=== PATIENT | female | born 1965 ===

== ENCOUNTER → 2019-11-25 16:21 | Outpatient (BNVA) | payer OTHER, SELFPAY | PROVIDERS: Family Provider Nurse Practitioner; PCP Nurse Practitioner; Visit Provider Internal Medicine | DX: Z86.19 Personal history of other infectious and parasitic diseases (principal); B37.3 Candidiasis of vulva and vagina | CPT/HCPCS: 87522 ==

== ENCOUNTER → 2020-06-13 07:20 | Outpatient (BNVA) | payer BC, OTHER, SELFPAY | PROVIDERS: Family Provider Nurse Practitioner; PCP Nurse Practitioner; Visit Provider Nurse Practitioner Family | DX: Z11.59 Encounter for screening for other viral diseases (principal) | CPT/HCPCS: 87635 ==

== ENCOUNTER 2022-01-01 15:14 | Outpatient (CLI) | payer OTHER, SELFPAY ==
--- NOTE | 2022-01-01 15:30 | MM_ITS ---
WS: [id number] VIEWS: MLO and CC views both breasts. 3D digital tomosynthesis is also included in this exam. Comparison made with prior exam of 08/14/2013, 09/10/2014, 09/12/2015, 09/17/2016, 09/19/2017, 03/12/2019.. Findings: There was no sign of mass, architectural distortion or suspicious calcification in either breast. Th e breasts are heterogeneously dense MM/[place] [id number] Impression: BI-RADS: 2-Benign FOLLOW-UP: 1 Year Follow-up This mammogram was also analyzed by the Computer Aided Detection System R2 Imag e Matrix Inspector.
== END 2022-01-01 15:15 | disposition home or self-care (01) ==
LOC: RAD 15:26
PROVIDERS: PCP Nurse Practitioner; Visit Provider Nurse Practitioner
DX: Z12.31 Encounter for screening mammogram for malignant neoplasm of breast (principal)
CPT/HCPCS: 77063; 77067

== ENCOUNTER 2022-12-19 01:14 | Inpatient (IN) | payer OTHER, SELFPAY ==
[2022-12-19] VITALS (17 sets, daily range): BP systolic 91–112; BP diastolic 58–72; PULSE 83–115; RESP 16–22; TEMP 36.8–38.7; O2SAT 89–99; BMI 19.8
--- NOTE | 2022-12-19 01:18 | ECG_ITS ---
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 Measurements Intervals [place] Rate: 115 P: 62 [place]: 124 QRS: 9 QRSD: 110 T: 12 QT: 326 QTc: 452 Interpretive Statements SINUS TACHYCARDIA POSSIBLE LEFT ATRIAL ENLARGEMENT [-0.1mV P-WAVE IN V1/V2] INCOMPLETE RIGHT BUNDLE BRANCH BLOCK ;S DURATION, TERMINAL R IN V1/V2, 40+ ms S IN I/aVL/V4/V5/V6] ST DEVIATION AND MODERATE T-WAVE ABNORMALITY, CONSIDER ANTERIOR ISCHEMIA [-0.1+ mV T-WAVE IN V3/V4] TYPE I BRUGADA PATTERN (NON-DIAGNOSTIC) [COVED/SADDLEBACK ST ELEVATION > 0.1mV IN 2 OF V1-3] No previous ECG available for comparison Electronically Signed On 12-19-2022 20:57:56 CDT by Nba Kerr M.D. [id number]
--- NOTE | 2022-12-19 01:18 | XRR_ITS ---
PROCEDURE INFORMATION: Exam: XR Chest Exam date and time: 12/19/2022 1:25 AM Age: 57 years old Clinical indication: Pain; Chest pressure; Additional info: Cp TECHNIQUE: Imaging protocol: Radiologic exam of the chest. Views: 1 view. COMPARISON: No relevant prior studies available. FINDINGS: Lungs: Left lower lung field hazy consolidative changes. Subtle right lower lung field hazy reticular opacities. Pleural spaces: No pneumothorax. Heart/Mediastinum: No cardiomegaly. Bones/joints: No acute fracture. XR/XR chest 1V portable [id number] IMPRESSION: Left lower lung field hazy consolidative changes compatible with evolving infectious and/or inflammatory process. Recommend follow-up to resolution to exclude other etiologies and occult underlying pathology.
--- NOTE | 2022-12-19 01:23 | ED_ITS ---
HPI - Chest Pain General: Chief Complaint: Chest Pain Stated Complaint: CP Time Seen by Provider: 12/19/22 01:15 Source: patient and EMS Mode of arrival: EMS Limitations: no limitations History of Present Illness: 57-year-old female states that she been having sharp left-sided chest pain throughout the day she has had a slight cough she is febrile here with a temp of 101.6 she states the pain is much worse with movement and palpation. Had some mild dyspnea as well. She denies any worsening improving factors denies any vomiting or diarrhea. Associated symptoms: Reports dyspnea and fever(s); Deny abdominal pain, nausea or vomiting Review of Systems Const: Reports: fever(s) and chills; Denies: body aches or change in appetite Eyes: Denies: blurry vision or eye discomfort ENMT: Denies: throat pain or dental pain Card: Reports: chest pain Resp: Reports: dyspnea GI: Denies: abdominal pain, nausea, vomiting or diarrhea : Denies: dysuria Musc: Denies: neck pain or back pain Skin/Breast: Denies: rash Neuro: Denies: headache(s) PFSH ED PFSH: Medical History Hepatitis C, chronic Surgical History History of section Family History Mother Goiter Hypertension Parkinson disease Sister Hepatitis C, chronic Grandmother Melanoma Social History Smoking and tobacco status: never smoked Alcohol intake: never Substance/Drug Use: never Household members: spouse Marital status: Current occupational status: employed Current gender identity: Female Physical Exam Const: COMMON NORMALS: patient oriented x3 HENMT: COMMON NORMALS: normocephalic and atraumatic HEAD & SCALP: normocephalic and atraumatic Eye: COMMON NORMALS: conjunctivae normal CONJUNCTIVA: Yes conjunctivae normal Neck/C-Spine: COMMON NORMALS: full ROM and supple Chest: COMMONS NORMALS: normal inspection of the chest OTHER: point tender over left chest reproduces pain Resp: COMMON NORMALS: No retractions and No use of accessory muscles OTHER: rales on left lower lung Cardio: COMMON NORMALS: regular rate, regular rhythm and No murmurs present (Cardio) RATE: regular rate RHYTHM: regular rhythm GI: COMMON NORMALS: Normal to inspection, nondistended, normoactive bowel sounds present, Soft to palpation, non-tender and no masses PALPATION: Yes Soft to palpation Extremity: COMMON NORMALS: normal to inspection and full ROM Neuro: COMMON NORMALS: patient oriented x3, moves all extremities and no focal motor deficits Psych: COMMON NORMALS: mental status grossly normal, Normal thought process present and cooperative THOUGHT PROCESS: Normal thought process present Skin: COMMON NORMALS: no rashes or lesions noted and no wounds GENERAL SKIN EXAM: no rashes or lesions noted Course Vital Signs: Vital signs: Vital Signs Temperature 101.6 F H 12/19/22 01:17 Pulse Rate 88 12/19/22 03:13 Respiratory Rate 18 12/19/22 02:24 Blood Pressure 107/66 12/19/22 03:13 Pulse Oximetry 95 12/19/22 03:13 Oxygen Delivery Me thod Nasal Cannula 12/19/22 03:13 Oxygen Flow Rate 2 12/19/22 03:13 MDM - Chest Pain Medical Decision Making Patient presents here with left-sided chest pain along with fever and some s hortness of breath she does have a left-sided pneumonia noted on her x-ray. She is requiring 2 L oxygen here as well I did speak to the hospitalist will admit for IV antibiotics at this time. Medical Records I reviewed the patient's medical records. Lab Data 12/19/22 02:05 12/19/22 02:05 Laboratory Results WBC 9.7 10^3/uL (4.0-10.0) 12/19/22 02:05 RBC 4.41 10^6/uL (4.1-5.3) 12/19/22 02:05 Hgb 13.4 g/dL (11.5-15.3) 12/19/22 02:05 Hct 41.6 % (37.0-47.0) 12/19/22 02:05 MCV 94.3 fl (81-99) 12/19/22 02:05 MCH 30.4 pg (28.0-34.0) 12/19/22 02:05 MCHC 32.2 g/dL (30.0-36.0) 12/19/22 02:05 RDW 11.9 % (12.1-15.1) L 12/19/22 02:05 Plt Count 209 10^3/cmm (130-400) 12/19/22 02:05 MPV 9.6 fL (7.4-10.4) 12/19/22 02:05 Neut % (Auto) 90.9 % 12/19/22 02:05 Lymph % (Auto) 4.5 % 12/19/22 02:05 Mcmullen % (Auto) 4.0 % 12/19/22 02:05 Eos % (Auto) 0.1 % 12/19/22 02:05 Baso % (Auto) 0.1 % 12/19/22 02:05 Neut # (Auto) 8.77 10^3/uL (1.8-7.7) H 12/19/22 02:05 Lymph # (Auto) 0.4 10^3/uL (0.8-4.8) L 12/19/22 02:05 Mcmullen # (Auto) 0.4 10^3/uL (0.2-0.9) 12/19/22 02:05 Eos # (Auto) 0.0 10^3/uL (0.0-0.8) 12/19/22 02:05 Baso # (Auto) 0.0 10^3/uL (0.0-0.1) 12/19/22 02:05 Nucleated RBC % (auto) 0 % 12/19/22 02:05 Nucleated RBCs # 0.0 /100WBC 12/19/22 02:05 Sodium 139 mmol/L (136-145) 12/19/22 02:05 Potassium 3.2 mmol/L (3.5-5.1) L 12/19/22 02:05 Chloride 104 mmol/L (98-107) 12/19/22 02:05 Carbon Dioxide 25 mmol/L (22-29) 12/19/22 02:05 Anion Gap 13.2 (5-19) 12/19/22 02:05 BUN 24 mg/dL (6-20) H 12/19/22 02:05 Creatinine 0.9 mg/dL (0.5-0.9) 12/19/22 02:05 GFR Calculation 64.3 mL/min (90-130) L 12/19/22 02:05 Glucose 131 mg/dL (65-115) H 12/19/22 02:05 Calculated Osmolality 294 mOsm/kg (285-295) 12/19/22 02:05 Lactic Acid 1.5 mmol/L (0.5-2.2) 12/19/22 02:05 Calcium 8.2 mg/dL (8.5-10.5) L 12/19/22 02:05 Total Bilirubin 0.4 mg/dL (0.15-1.2) 12/19/22 02:05 AST 24 U/L (0-32) 12/19/22 02:05 ALT 17 U/L (0-33) 12/19/22 02:05 Alkaline Phosphatase 76 U/L (35-105) 12/19/22 02:05 Troponin T Baseline 10 ng/L (0-10) 12/19/22 02:05 NT-Pro-B Natriuret Pep 116 pg/mL (0-125) 12/19/22 02:05 Total Protein 6.7 g/dL (6.6-8.7) 12/19/22 02:05 Albumin 4.0 g/dL (3.5-5.2) 12/19/22 02:05 Globulin 2.7 g/dL (1.3-4.6) 12/19/22 02:05 SARS-CoV-2 Ag (Rapid) negative (Negative) 12/19/22 01:50 Discharge Plan Discharge Patient Disposition: Admitted As Inpatient Clinical Impression: Pneumonia Condition: Stable Coding Level of Care Code ED Habilitation Training Specialist for Hannah Ann
[2022-12-19] MEDS: morphine 4 mg/mL SDV 1 mL IVP (01:30)
[2022-12-19] MEDS: ondansetron 2 mg/ML SDV 2 mL 4 MG IVP (01:30)
[2022-12-19] MEDS: sodium chloride 0.9% 1,000 ML 999 ML IV ×2 (01:31→01:40)
[2022-12-19] MEDS: acetaminophen 500 mg Tablet 1000 MG PO (01:38)
[2022-12-19] MEDS: cefTRIAXone 1,000 MG in sodium chloride 0.9% (plus) 50 ML 100 MG IV (02:04)
[2022-12-19 02:16] LABS: SARS Covid-2 Antigen negative (Negative)
[2022-12-19 02:17] LABS: Basophils % 0.1 %; Eosinophils % 0.1 %; Hematocrit 41.6 % (37.0-47.0); Hemoglobin 13.4 g/dL (11.5-15.3); Lymphocytes # 0.4 10^3/uL (0.8-4.8); Lymphocytes % 4.5 %; Mean Corpuscular HGB Conc 32.2 g/dL (30.0-36.0); Mean Corpuscular Hemoglobin 30.4 pg (28.0-34.0); Mean Corpuscular Volume 94.3 fl (81-99); Mean Platelet Volume 9.6 fL (7.4-10.4); Monocytes # 0.4 10^3/uL (0.2-0.9); Neutrophils # 8.77 10^3/uL (1.8-7.7); Neutrophils % 90.9 %; Nucleated Red Blood Cells % 0 %; Platelet Count 209 10^3/cmm (130-400); Red Blood Count 4.41 10^6/uL (4.1-5.3); Red Cell Distribution Width 11.9 % (12.1-15.1); White Blood Count 9.7 10^3/uL (4.0-10.0)
[2022-12-19] MEDS: HYDROmorphone 1 mg/mL INJ 1 mL 0.5 MG IVP (02:17)
[2022-12-19] MEDS: azithromycin 500 MG in sodium chloride 0.9% 250 ML 250 MG IV (02:21)
[2022-12-19 02:43] LABS: Lactic Sepsis W/Reflex 1.5 mmol/L (0.5-2.2)
[2022-12-19 02:55] LABS: Alanine Aminotransferase 17 U/L (0-33); Alkaline Phosphatase 76 U/L (35-105); Anion Gap 13.2 (5-19); Aspartate Amino Transferase 24 U/L (0-32); Blood Urea Nitrogen 24 mg/dL (6-20); Calcium 8.2 mg/dL (8.5-10.5); Carbon Dioxide 25 mmol/L (22-29); Chloride 104 mmol/L (98-107); Globulin 2.7 g/dL (1.3-4.6); Glomerular Filtration Rate 64.3 mL/min (90-130); Glucose 131 mg/dL (65-115); NT Pro B Type Natriuretic Pept 116 pg/mL (0-125); Osmolality Calculated 294 mOsm/kg (285-295); Potassium 3.2 mmol/L (3.5-5.1); Sodium 139 mmol/L (136-145); Total Bilirubin 0.4 mg/dL (0.15-1.2); Total Protein 6.7 g/dL (6.6-8.7)
[2022-12-19 03:08] LABS: Troponin(5th) Baseline 10 ng/L (0-10)
[2022-12-19 04:12] LABS: Glucose Urine UA Norm (Normal); Protein Urine Trace (Negative); Urine Appearance Clear (CLEAR); Urine Color Yellow (Yellow); pH Urine 7 (5-7)
[2022-12-19 04:13] LABS: Add Urine Culture? No; Add Urine Microscopic? YES; Bacteria Urine TRACE /hpf; Bilirubin Urine Neg (Negative); Blood Urine 2+ (Negative); Ketones Urine Negative (Negative); Leukocyte Esterase Urine Trace (Negative); Nitrate Urine Negative (Negative); Urobilinogen Urine Neg (Negative); WBC Urine 0-4 /hpf (0-5)
--- NOTE | 2022-12-19 04:15 | PM.HP ---
Providers/Chief Complaint Admitting Physician: Iris Kennedy MD Primary Care Provider: Mary Montanez APN Chief Complaint: CP History of Present Illness Eri Kaye is a 57 year old female past medical history of chronic hepatitis C presented to the hospital for sharp left-sided chest pain has been going on all day along with slight cough. She is not really expectorating any sputum at this time. She has had a fever at home and has been febrile in the ER as well at 101.6. Her chest pain worsens with every deep breath and movement. She also feels slightly short of breath. Denies nausea, vomiting, diarrhea, abdominal pain at this time. She has also noticed her heart has been skipping a beat lately. She considers herself very healthy otherwise. Denies hx of blood clots. Works at [employer]. She states her job entails standing all day. She says she is quite worried about her heart that she might be getting a heart attack since it has been skipping beats and she has been having chest pain however the chest pain is reproducible to palpation and is related to movement and worsens when she lays flat. However she also says that maybe she does not notice the pain when she is working because she is so busy and only notices it when she lays down. ED course: 107/66, saturating 95% on 2 L nasal cannula. Has not on any oxygen at home. Respiratory rate 18, pulse 88, temp 101.6. Labs showing WBC 9.7, hemoglobin 13.4, platelets 2 9, sodium 139, potassium 3.2, creatinine 0.9, glucose 131, lactic acid 1.5, COVID-negative. BNP 116. Chest x-ray shows left lower lung field hazy consolidative changes compatible with evolving infectious or inflammatory process. EKG shows possible Brugada syndrome. Right bundle branch block present. Patient slightly sinus tachycardic. Medications/Allergies Home Medications Medication Instructions Recorded Confirmed Last Taken Type cetirizine 10 mg tablet (Zyrtec) 10 mg PO DAILY 11/24/19 06/25/22 Unknown History Allergies Allergy/AdvReac Type Severity Reaction Status Date / Time No Known Allergies Allergy Verified 06/25/22 15:01 PFSH Acute PFSH: Medical History Hepatitis C, chronic Surgical History History of section Family History Mother Goiter Hypertension Parkinson disease Sister Hepatitis C, chronic Grandmother Melanoma Social History Smoking and tobacco status: never smoked Alcohol intake: never Substance/Drug Use: never Household members: spouse Marital status: Current occupational status: employed Current gender identity: Female Vitals/I&O/Wt Last Vital Signs Temp 98.8 F 12/19/22 03:53 Pulse 93 12/19/22 03:34 Resp 18 12/19/22 02:24 BP 101/71 12/19/22 03:34 Pulse Ox 97 12/19/22 03:34 O2 Del Method Nasal Cannula 12/19/22 03:34 O2 Flow Rate 2 12/19/22 03:34 12/18/22 12/18/22 12/19/22 14:59 22:59 06:59 Intake Total 1050 / 1050 Balance 1050 / 1050 Weight last 48 hrs Weight 47.627 kg Physical Exam Narrative: General: Alert oriented x3, patient seen laying in bed on 2 L nasal cannula at this time saturating 95%. Appears anxious. HEENT: Normocephalic, atraumatic, EOMI, breathing comfortably on nasal cannula. Cardio: Slight sinus tachycardia, normal S1-S2, Respiratory: Mainly clear to auscultation bilaterally with mild rales at left lower base GI: Abdomen soft, nontender, bowel sounds + Behavior: Appropriate and cooperative Extremities: No edema present. Data 12/19/22 02:05 12/19/22 02:05 Micro: Microbiology 12/19/22 02:07 Blood Culture - Preliminary Blood SPECIMEN COLLECTED 12/19/22 02:05 Blood Culture - Preliminary Blood SPECIMEN COLLECTED A&P Assessment and plan (1) Pneumonia: (2) Hepatitis C virus infection cured after antiviral drug therapy: Plan #Left lower lobe pneumonia #History of hepatitis C. #Possible Brugada syndrome on EKG #New oxygen dependency ? Patient is experiencing pleuritic chest pain most likely secondary to pneumonia. However pericarditis is not excluded at this time. We will check procalcitonin. ? Baseline troponin 10, BNP 116. 2-hour 6-hour troponin is pending at this time. UA shows trace leukocyte esterase, 2+ blood, 5-10 RBCs. ? Placed on ceftriaxone azithromycin ? Check bacterial antigens Legionella, Streptococcus ? DuoNeb every 4 hours as needed ? Check CBC BMP in a.m., magnesium in a.m. ? Consult cardiology regarding EKG findings in a.m. ? Tylenol 650 as needed for pain ? Check hep C viral load ? Check blood cultures ? Check sputum culture Gram stain ? Wean off oxygen as able ? Will require home oxygen evaluation at discharge ? Check cardiac echo ? Placed on cardiac telemetry. ? We will order ibuprofen 400 mg every 8 hours as needed as well. Full code SCDs, heparin SQ twice daily Attestations Medical Necessity Statement*: Greater than 2 midnight stay for management of left lower lobe pneumonia requiring oxygen. Coding Level of Care Code G0425 (30 min) TH Encounter Time (min): 40 Patient seen via Telehealth in the acute care setting (hospital or ED location) by agreement and consent of patient or patient route sales representative. Telehealth technology used during the visit includes video and audio. This patient encounter is appropriate and reasonable under the circumstances given the patient?s particular presentation at this time. The patient has been advised of the potential risks and limitations of this mode of treatment (including but not limited to the absence of in-person examination at this time) and has agreed to be treated by an off-site physician for this visit. If deemed clinically necessary from this telehealth visit, or if condition or consent for telehealth visit changes, an in-person visit will be arranged. For this encounter, total time for the origination of telehealth care on this date is as shown. Patient provided consent to be seen over audiovisual cart before proceeding with history taking and physical exam in presence of RN. Diagnoses Pneumonia J18.9 Hepatitis C virus infection cured after antiviral drug therapy Z86.19
--- NOTE | 2022-12-19 04:25 | USCV_ITS ---
Vargas Eri Age: 57 Gender: F : 1965 Exam Date: 12/19/2022 08:35 Ordering Phys: Iris Kennedy MD Technologist: CT [place] [facility] [place]: cp BP: 137 / 65 HR: 82 Rhythm: Sinus Technical Quality: Adequate MEASUREMENTS (Male / Female) Normal Values 2D ECHO LV Diastolic Diameter PLAX 3.4 cm 4.2 - 5.9 / 3.9 - 5.3 cm LV Systolic Diameter PLAX 1.8 cm LV Chamber Size 3.4 cm IVS Diastolic Thickness 0.8 cm 0.6 - 1.0 / 0.6 - 0.9 cm IVS Systolic Thickness 1.1 cm LVPW Diastolic Thickness 1.1 cm 0.6 - 1.0 / 0.6 - 0.9 cm LVPW Systolic Thickness 1.7 cm RV Chamber Size 2.8 cm LV Ejection Fraction 2D Teich 79.7 % LV Ejection Fraction MOD 2C 57.5 % LV Ejection Fraction 2C AL 58.4 % LA Diameter 2.5 cm LA Width 3.1 cm LA Height 3.2 cm RA Width 3.5 cm Aorta at Sinotubular Diameter 2.5 cm IVC Diameter 1.5 cm M-MODE Aortic Annulus Diameter 3.2 cm LA Ao Ratio MM 0.8 MV E Point Septal Separation 0.4 cm DOPPLER AV Peak Velocity 131.9 cm/s LVOT Peak Velocity 99.0 cm/s MV Peak Velocity 100.1 cm/s MV Area PHT 3.4 cm squared Mitral E to A Ratio 1.2 MV E' Velocity 42.1 cm/s Mitral E to MV E' Ratio 6.0 Mitral E to LV E' Lateral Ratio 5.6 Mitral E to LV E' Septal Ratio 6.4 TR Peak Velocity 215.8 cm/s TR Peak Gradient 18.6 mmHg TR Mean Velocity 166.1 cm/s TR Mean Gradient 13.0 mmHg TR Velocity Time Integral 51.7 cm TV Peak E Velocity 87.3 cm/s Right Atrial Pressure 3.0 mmHg Pulmonary Artery Systolic Pressu 21.6 mmHg PV Peak Velocity 90.1 cm/s RV Acceleration Time 0.3 s FINDINGS Left Ventricle Normal left ventricular size and systolic function, EF 65%. No gross wall motion abnormalities Right Ventricle Upper limit of normal size. Normal ejection fraction. Right Atrium Mildly dilated Left Atrium Normal left atrial size. Mitral Valve No gross abnormalities noted Aortic Valve No gross abnormalities noted Tricuspid Valve Pjcj-kz-mlmzrnya tricuspid valve regurgitation. Estimated pulmonary artery peak systolic pressure of 35 mmHg Pulmonic Valve No gross abnormalities noted Pericardium Normal pericardium without effusion. Aorta Normal ascending aorta dimension. IVC The inferior vena cava appears normal. CONCLUSIONS Normal left ventricular size and systolic function, EF 65%. No gross wall motion abnormalities. Right ventricle , upper limit of normal size. Possibly normal RVEF. Mildly dilated right atrium. Rzhn-lc-doqrycpm tricuspid valve regurgitation. Estimated pulmonary artery peak systolic pressure of 35 mmHg. There is no pericardial effusion. There are no intracardiac masses. No interatrial shunt, based on the color-flow Doppler examination No similar previous studies are available for comparison Dr Nba Kerr MD [facility] (Electronically Signed) Final Date: 19 Dec 2022 13:24 S
[2022-12-19 05:18] LABS: Thyroid Stimulating Hormone 0.51 uIU/mL (0.27-4.20)
[2022-12-19 05:19] LABS: Procalcitonin 1.49 ng/mL (0-0.5)
[2022-12-19] MEDS: sodium chloride 0.9% 1,000 ML 125 ML IV (05:30)
[2022-12-19] MEDS: heparin 5,000 unit/mL INJ 1 mL 5000 UNIT SUBCUT ×2 (05:30→16:42)
--- NOTE | 2022-12-19 07:18 | ECG_ITS ---
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 Measurements Intervals [place] Rate: 87 P: 41 MA: 122 QRS: 24 QRSD: 106 T: 33 QT: 355 QTc: 427 Interpretive Statements SINUS RHYTHM WITH SINUS ARRHYTHMIA LOW QRS VOLTAGE IN PRECORDIAL LEADS [QRS DEFLECTION < 1.0 mV IN CHEST LEADS] POSSIBLE RIGHT VENTRICULAR CONDUCTION DELAY [RSR (QR) IN V1/V2] ST ELEVATION CONSISTENT WITH INJURY, PERICARDITIS, OR EARLY REPOLARIZATION [ST ELEVATION W/O NORMALLY INFLECTED T-WAVE] TYPE I or 3 BRUGADA PATTERN (NON-DIAGNOSTIC) [COVED/SADDLEBACK ST ELEVATION > 0.1mV IN 2 OF V1-3] Compared to ECG 12/19/2022 01:23:14 Low QRS voltage now present Sinus tachycardia no longer present Incomplete right bundle-branch block no longer present T-wave abnormality no longer present Possible ischemia no longer present ST (T wave) deviation still present Electronically Signed On 12-20-2022 14:05:43 CDT by Harsha Hernandez M.D. [id number]
[2022-12-19] MEDS: potassium chloride ER 20 mEq Tablet 40 MEQ PO (08:02)
[2022-12-19] MEDS: magnesium oxide 400 mg tablet PO ×2 (08:02→17:02)
[2022-12-19 08:49] LABS: Magnesium 1.8 mg/dL (1.7-2.3)
[2022-12-19 08:52] LABS: Troponin 5 6HR 8.39 ng/L (0-10)
--- NOTE | 2022-12-19 09:06 | PM.CONSULT ---
Providers/Reason For Consult Consulting Physician/Specialty*: CARIDAD Kerr MD/cardiology Reason for Consult*: Abnormal EKG/suggesting Brugada syndrome Requesting Physician: Dr. Kennedy Attending Physician: Iris Kennedy MD Primary Care Provider: Mary Montanez APN History of Present Illness History of Present Illness Eri Kaye is a 57 year old female is admitted to hospital with a features of right lower lobe pneumonia. The routine EKG showed a features of a Brugada syndrome. Cardiology consult is requested for further cardiac evaluation and recommendations. The patient is EKG showed a sinus tachycardia with incomplete right bundle branch block pattern. Coving ST elevation in lead V1 through V3. The PQ duration was at 200 ms. QRS duration 110 ms. Patient mainly presented with the complaints of left-sided chest pain, shortness of breath and a fever. The chest pain was pleuritic in nature. Apparently it started all of a sudden to his the evening. She waited around for few hours. Since there was no relief of the symptoms, her called the ambulance and was brought to the emergency room. This patient has no history for any documented cardiac arrhythmia. However, according to her, she has the heart palpitation especially in the night when she tried to lie down. She has no significant palpitations during the daytime. She described the symptom was heart beating too fast and then it may quit. She has occasional right-sided chest pain. But the pain never been bad enough to go to the doctor. No associated shortness of breath, nausea or vomiting. Review of Systems Narrative: CONSTITUTIONAL: No fever or chills. EYES: No blurring of vision or other visual disturbances lately. ENT: No hoarseness of voice, auditory disturbances or sore throat. CARDIOVASCULAR: As mentioned above. RESPIRATORY: Scattered expiratory wheezing and some coarse crackles on the left side. GASTROINTESTINAL: No hematemesis or melena. GENITOURINARY: No dysuria or hematuria. INTEGUMENTARY: No skin rashes or history of skin cancer. NEURO: No transient ischemic attacks or amaurosis. PSYCHIATRIC: No history of psychosis or major depression. HEMATOLOGIC: No bleeding disorders or significant anemia. ENDOCRINE: No history of polyuria or polydipsia. MUSCULOSKELETAL: No recent joint pain or swelling. ALLERGY/IMMUNOLOGY: As mentioned above. Medications/Allergies Home Medications Medication Instructions Recorded Confirmed Last Taken Type cetirizine 10 mg tablet (Zyrtec) 10 mg PO DAILY 11/24/19 12/19/22 Unknown History chlorhexidine gluconate 0.12 % 15 ml PO BID 12/19/22 12/19/22 Unknown History mouthwash Allergies Allergy/AdvReac Type Severity Reaction Status Date / Time No Known Allergies Allergy Verified 06/25/22 15:01 Current Medications Generic Name Dose Route Start Last Admin Trade Name Freq PRN Reason Stop Dose Admin Heparin Sodium (Porcine) 5,000 unit 12/19/22 04:30 12/19/22 05:30 Heparin 5,000 Unit/Ml Inj 1 Ml SUBCUT 5,000 unit Q12H KERI Administration Sodium Chloride 1,000 mls @ 125 mls/hr 12/19/22 04:30 12/19/22 05:30 Sodium Chloride 0.9% IV 125 mls/hr .Q8H KERI Administration Magnesium Oxide 400 mg 12/19/22 09:00 12/19/22 08:02 Magnesium Oxide 400 Mg Tablet PO 400 mg BID KERI Administration PFSH Acute PFSH: Medical History Hepatitis C, chronic Surgical History History of section Family History Mother Goiter Hypertension Parkinson disease Sister Hepatitis C, chronic Grandmother Melanoma Social History Smoking and tobacco status: never smoked Alcohol intake: never Substance/Drug Use: never Household members: spouse Marital status: Current occupational status: employed Current gender identity: Female Vitals/I&O/Wt Last Vital Signs Temp 100.7 F H 12/19/22 07:39 Pulse 83 12/19/22 07:39 Resp 20 H 12/19/22 07:39 BP 92/58 12/19/22 07:39 Pulse Ox 92 12/19/22 07:39 O2 Del Method Nasal Cannula 12/19/22 08:50 O2 Flow Rate 2 12/19/22 08:50 12/18/22 12/19/22 12/19/22 22:59 06:59 14:59 Intake Total 2300 / 2300 Balance 2300 / 2300 Weight last 48 hrs Weight 105 lb Weight 105 lb Physical Exam Narrative: GENERAL: The patient is alert and oriented times three. Not in any acute distress. HEENT: No significant pallor, icterus or lymphadenopathy.Oral cavity: There are no mucous membrane lesions. NECK: Trachea appears to be central. No masses noted. No JVD or thyromegaly appreciated. RESPIRATORY: Chest is symmetrical. No intercostals muscle retraction or any accessory muscle activation. There is no chest wall tenderness. Breath sounds are heard bilaterally. No rales or rhonchi heard. No evidence of any consolidation. BREASTS: Deferred. HEART: The heart sounds are normal. No S3 or S4. No significant murmurs. No pericardial rub ABDOMEN: No vessel pulsations or distention. No tenderness. No organomegaly appreciated. Bowel sounds are normally heard. : Deferred. RECTAL: Deferred. LYMPHATIC: No lymphadenopathy noted in the neck. EXTREMITIES: No edema or cyanosis. No clubbing. MUSCULOSKELETAL: No acute joint deformities or swelling SKIN: There are no significant rashes or ecchymosis NEUROPSYCHIATRIC: The patient is alert and oriented x3. Appears to be in a good mood. No tremors or rigidity noted. Data 12/19/22 02:05 12/19/22 02:05 Other Labs: Laboratory Last Values WBC 9.7 10^3/uL (4.0-10.0) 12/19/22 02:05 RBC 4.41 10^6/uL (4.1-5.3) 12/19/22 02:05 Hgb 13.4 g/dL (11.5-15.3) 12/19/22 02:05 Hct 41.6 % (37.0-47.0) 12/19/22 02:05 MCV 94.3 fl (81-99) 12/19/22 02:05 MCH 30.4 pg (28.0-34.0) 12/19/22 02:05 MCHC 32.2 g/dL (30.0-36.0) 12/19/22 02:05 RDW 11.9 % (12.1-15.1) L 12/19/22 02:05 Plt Count 209 10^3/cmm (130-400) 12/19/22 02:05 MPV 9.6 fL (7.4-10.4) 12/19/22 02:05 Neut % (Auto) 90.9 % 12/19/22 02:05 Lymph % (Auto) 4.5 % 12/19/22 02:05 [place]asper % (Auto) 4.0 % 12/19/22 02:05 Eos % (Auto) 0.1 % 12/19/22 02:05 Baso % (Auto) 0.1 % 12/19/22 02:05 Neut # (Auto) 8.77 10^3/uL (1.8-7.7) H 12/19/22 02:05 Lymph # (Auto) 0.4 10^3/uL (0.8-4.8) L 12/19/22 02:05 [place]asper # (Auto) 0.4 10^3/uL (0.2-0.9) 12/19/22 02:05 Eos # (Auto) 0.0 10^3/uL (0.0-0.8) 12/19/22 02:05 Baso # (Auto) 0.0 10^3/uL (0.0-0.1) 12/19/22 02:05 Nucleated RBC % (auto) 0 % 12/19/22 02:05 Nucleated RBCs # 0.0 /100WBC 12/19/22 02:05 Sodium 139 mmol/L (136-145) 12/19/22 02:05 Potassium 3.2 mmol/L (3.5-5.1) L 12/19/22 02:05 Chloride 104 mmol/L (98-107) 12/19/22 02:05 Carbon Dioxide 25 mmol/L (22-29) 12/19/22 02:05 Anion Gap 13.2 (5-19) 12/19/22 02:05 BUN 24 mg/dL (6-20) H 12/19/22 02:05 Creatinine 0.9 mg/dL (0.5-0.9) 12/19/22 02:05 GFR Calculation 64.3 mL/min (90-130) L 12/19/22 02:05 Glucose 131 mg/dL (65-115) H 12/19/22 02:05 Calculated Osmolality 294 mOsm/kg (285-295) 12/19/22 02:05 Lactic Acid 1.5 mmol/L (0.5-2.2) 12/19/22 02:05 Calcium 8.2 mg/dL (8.5-10.5) L 12/19/22 02:05 Magnesium 1.8 mg/dL (1.7-2.3) 12/19/22 08:17 Total Bilirubin 0.4 mg/dL (0.15-1.2) 12/19/22 02:05 AST 24 U/L (0-32) 12/19/22 02:05 ALT 17 U/L (0-33) 12/19/22 02:05 Alkaline Phosphatase 76 U/L (35-105) 12/19/22 02:05 Troponin T Baseline 10 ng/L (0-10) 12/19/22 02:05 Troponin T Hi Sens 6Hr 8.39 ng/L (0-10) 12/19/22 08:17 NT-Pro-B Natriuret Pep 116 pg/mL (0-125) 12/19/22 02:05 Total Protein 6.7 g/dL (6.6-8.7) 12/19/22 02:05 Albumin 4.0 g/dL (3.5-5.2) 12/19/22 02:05 Globulin 2.7 g/dL (1.3-4.6) 12/19/22 02:05 Procalcitonin 1.49 ng/mL (0-0.5) H 12/19/22 02:05 TSH 0.51 uIU/mL (0.27-4.20) 12/19/22 02:05 Urine Color Yellow (Yellow) 12/19/22 03:50 Urine Appearance Clear (CLEAR) 12/19/22 03:50 Urine pH 7 (5-7) 12/19/22 03:50 Ur Specific [place] 1.020 (1.005-1.030) 12/19/22 03:50 Urine Protein Trace (Negative) 12/19/22 03:50 Urine Glucose (UA) Norm (Normal) 12/19/22 03:50 Urine Ketones Negative (Negative) 12/19/22 03:50 Urine Blood 2+ (Negative) H 12/19/22 03:50 Urine Nitrate Negative (Negative) 12/19/22 03:50 Urine Bilirubin Neg (Negative) 12/19/22 03:50 Urine Urobilinogen Neg mg/dL (Negative) 12/19/22 03:50 Ur Leukocyte Esterase Trace (Negative) H 12/19/22 03:50 Urine RBC 5-10 /hpf (0-2) H 12/19/22 03:50 Urine WBC 0-4 /hpf (0-5) H 12/19/22 03:50 Ur Squamous Epith Cells None /hpf (0-5) 12/19/22 03:50 Amorphous Sediment Not Reportable 12/19/22 03:50 Urine Bacteria Trace /hpf (NONE) 12/19/22 03:50 SARS-CoV-2 Ag (Rapid) negative (Negative) 12/19/22 01:50 Micro: Microbiology 12/19/22 02:07 Blood Culture - Preliminary Blood SPECIMEN COLLECTED 12/19/22 02:05 Blood Culture - Preliminary Blood SPECIMEN COLLECTED Echo: My impression: Normal left ventricular size and systolic function, EF 65%.? No ?gross wall motion abnormalities. ?Right ventricle , upper limit of normal size.? Possibly normal ?RVEF. ?Mildly dilated right atrium. ?Pyaw-zd-snyeczja tricuspid valve regurgitation.? ?Estimated pulmonary artery peak systolic pressure of 35 mmHg. ?There is no pericardial effusion. ?There are no intracardiac masses. ?No interatrial shunt, based on the color-flow Doppler ?examination ?No similar previous studies are available for comparison EKG 1: My Interpretation: Sinus tachycardia with a heart rate of [address] segment elevations in lead V1 to V3 with a T inversion. Diffuse nonspecific T wave changes. Possible left atrial enlargement. QRS duration is 110 ms. The PQ duration 200 ms. S waves in leads I, II and III A&P Assessment and plan (1) Brugada pattern on electrocardiogram: Patient currently has a type I Brugada pattern on the EKG. She was having a low-grade fever at the time of hospital admission. This might have revealed this pattern. Repeat EKG be appropriate to see any difference. (2) Palpitations: Patient seems to have a some labile tachyarrhythmia. According to her, the whole family has similar heart problems with a heart beats too fast and too slow. But apparently none of them had any pacemaker or ICD implantation. This may need to be further evaluated. So far the telemetry does not show any significant tachyarrhythmia. She may be closely monitored on telemetry. (3) Left lower lobe pneumonia: Management as per the primary. (4) Right atrial dilatation: The echocardiogram was of suboptimal quality. The right atrium and right ventricle appears to be mildly dilated /upper limit of normal size. There is no significant structural abnormality noted Plan Other problems are Fever, currently afebrile Mild hypokalemia at this point, the patient may not require any specific intervention. She may be discharged home with an event monitor. Consult Attestations Medical Necessity Statement: Disposition as per the primary Coding Level of Care Code 08730 Diagnoses Brugada pattern on electrocardiogram I49.8 Palpitations R00.2 Left lower lobe pneumonia J18.9 Right atrial dilatation I51.7
[2022-12-19 09:08] LABS: Troponin 5 6HR Delta -1.61 ng/L (0-12)
--- NOTE | 2022-12-19 10:58 | PM.MISC ---
Miscellaneous Note Note: Patient is stating she is hurting on taking deep breath on left side I did explain pleuritic chest pain She was getting echocardiogram evaluation Patient is endorsing palpitation at the time of that time She has not noticed any shortness of breath She is denying sudden cardiac arrest family history In the family no one has AICD or pacemaker Currently euvolemic S1, S2 Febrile, low blood pressure 92/58 Dehydrated Currently on 2 L Pleuritic chest pain Pleuritic chest pain we will give her a dose of Toradol Hypotension we will give her 1 L bolus of LR Outpatient EP study for Brugada syndrome? We will follow-up with cardiology recommendations I have spoken with Dr. Kerr Continue IV fluid hydration Continue ceftriaxone and azithromycin Hypokalemia: Repleted added mag level Hypoxia related to pneumonia, wean oxygen to room air hypoxia related to pneumonia, wean oxygen to room air
[2022-12-19] MEDS: lactated ringers 1,000 ML 999 ML IV (11:19)
[2022-12-19] MEDS: sodium chloride 0.9% 1,000 ML 100 ML IV ×2 (11:54→19:59)
[2022-12-19] MEDS: doxycycline 100 mg Tablet PO (17:02)
--- NOTE | 2022-12-19 18:42 | ECG_ITS ---
[facility] Test Date: 2022-12-20 Pat Name: Eri Kaye Department: Room: 268 Gender: Female Supervisor Tower: : 1965 Requested By: Nba Kerr Order Number: [id number] Kassy MD: Harsha Hernandez M.D. Measurements Intervals [place] Rate: 87 P: 43 IA: 120 QRS: 22 QRSD: 109 T: 5 QT: 345 QTc: 416 Interpretive Statements SINUS RHYTHM INCOMPLETE RIGHT BUNDLE BRANCH BLOCK [90+ ms QRS DURATION, TERMINAL R IN V1/V2, 40+ ms S IN I/aVL/V4/V5/V6] MODERATE T-WAVE ABNORMALITY, CONSIDER ANTERIOR ISCHEMIA [-0.1+ mV T-WAVE IN V3/V4] TYPE 3 BRUGADA PATTERN (NON-DIAGNOSTIC) [COVED/SADDLEBACK ST ELEVATION > 0.1mV IN 2 OF V1-3] Compared to ECG 12/19/2022 09:37:21 Incomplete right bundle-branch block now present T-wave abnormality now present Possible ischemia now present ST (T wave) deviation still present Electronically Signed On 12-20-2022 14:12:12 CDT by Harsha Hernandez M.D. [email or web address].[employer]/store/OM/[id number]
[2022-12-20] VITALS (12 sets, daily range): BP systolic 93–115; BP diastolic 54–69; PULSE 65–92; RESP 15–18; TEMP 36.4–37.6; O2SAT 94–100
[2022-12-20] MEDS: acetaminophen 325 mg Tablet 650 MG PO (00:12)
[2022-12-20] MEDS: cefTRIAXone 1,000 MG in sodium chloride 0.9% (plus) 50 ML 100 MG IV (02:09)
[2022-12-20] MEDS: sodium chloride 0.9% 1,000 ML 100 ML IV ×2 (05:00→15:17)
[2022-12-20] MEDS: heparin 5,000 unit/mL INJ 1 mL 5000 UNIT SUBCUT ×2 (05:00→16:38)
[2022-12-20 05:06] LABS: Basophils % 0.2 %; Eosinophils % 0.1 %; Hematocrit 37.7 % (37.0-47.0); Hemoglobin 12.3 g/dL (11.5-15.3); Lymphocytes # 1.8 10^3/uL (0.8-4.8); Lymphocytes % 14.3 %; Mean Corpuscular HGB Conc 32.6 g/dL (30.0-36.0); Mean Corpuscular Hemoglobin 30.6 pg (28.0-34.0); Mean Corpuscular Volume 93.8 fl (81-99); Mean Platelet Volume 9.6 fL (7.4-10.4); Monocytes # 0.7 10^3/uL (0.2-0.9); Monocytes % 5.1 %; Neutrophils # 10.21 10^3/uL (1.8-7.7); Neutrophils % 79.4 %; Nucleated Red Blood Cells % 0 %; Platelet Count 161 10^3/cmm (130-400); Red Blood Count 4.02 10^6/uL (4.1-5.3); Red Cell Distribution Width 12.3 % (12.1-15.1); White Blood Count 12.9 10^3/uL (4.0-10.0)
[2022-12-20 05:31] LABS: Alanine Aminotransferase 24 U/L (0-33); Alkaline Phosphatase 45 U/L (35-105); Anion Gap 8.8 (5-19); Aspartate Amino Transferase 25 U/L (0-32); Blood Urea Nitrogen 8 mg/dL (6-20); Calcium 8.2 mg/dL (8.5-10.5); Carbon Dioxide 24 mmol/L (22-29); Chloride 110 mmol/L (98-107); Globulin 2.5 g/dL (1.3-4.6); Glomerular Filtration Rate 102.7 mL/min (90-130); Glucose 111 mg/dL (65-115); Magnesium 2.2 mg/dL (1.7-2.3); Osmolality Calculated 287 mOsm/kg (285-295); Potassium 3.8 mmol/L (3.5-5.1); Sodium 139 mmol/L (136-145); Total Bilirubin 0.3 mg/dL (0.15-1.2); Total Protein 5.5 g/dL (6.6-8.7)
[2022-12-20 05:33] LABS: Slide Review Slide Review Perform
[2022-12-20] MEDS: doxycycline 100 mg Tablet PO ×2 (08:30→17:34)
[2022-12-20] MEDS: magnesium oxide 400 mg tablet PO ×2 (08:30→17:34)
[2022-12-20 08:53] LABS: Cortisol Random 5.12 ug/dL (2.47-19.5)
--- NOTE | 2022-12-20 11:12 | PM.PN ---
Subjective Subjective: No overnight events, patient still endorsing chest discomfort on deep breathing Afebrile since yesterday Low blood pressure noted Random cortisol level seems to be normal Blood pressure 93/62 mm of We will do stress test tomorrow morning patient is agreeable She will be discharged with event monitor Echo unremarkable preserved ejection fraction mild tricuspid regurgitation Vitals/I&O/Wt Last Vital Signs Temp 98.0 F 12/20/22 04:00 Pulse 89 12/20/22 07:43 Resp 16 12/20/22 07:43 BP 93/62 12/20/22 07:24 Pulse Ox 96 12/20/22 07:43 O2 Del Method Room Air 12/20/22 07:43 O2 Flow Rate 2 12/19/22 20:32 12/19/22 12/20/22 12/20/22 22:59 06:59 14:59 Intake Total 1288.333 / 3433.749 951.667 / 4385.416 360 / 360 Balance 1288.333 / 3433.749 951.667 / 4385.416 360 / 360 Weight last 48 hrs Weight 47.627 kg Weight 47.627 kg Physical Exam Narrative: Awake and alert S1, S2 Sinus rhythm abdomen soft euvolemic Abdomen soft Nonfocal neuro exam Currently on room air GCS 15 Pleasant and cooperative is at the bedside Data 12/20/22 04:46 12/20/22 04:46 Micro: Microbiology 12/19/22 02:07 Blood Culture - Preliminary Blood NEGATIVE TO DATE 12/19/22 02:05 Blood Culture - Preliminary Blood NEGATIVE TO DATE 12/19/22 10:14 Legionella Urinary Antigen - Final Urine,Voided Bacterial Antigens - Final A&P Assessment and plan (1) Right atrial dilatation: (2) Palpitations: (3) Brugada pattern on electrocardiogram: (4) Left lower lobe pneumonia: (5) Pneumonia: (6) Yeast vaginitis: (7) Hepatitis C virus infection cured after antiviral drug therapy: Plan Left-sided pleuritic chest pain Related to lower lobe pneumonia Echo unremarkable We will request chest chest wall pneumonia EKG consistent with Brugada type I, patient's blood pressure has been normal softer side despite IV fluids, sinus rhythm with incomplete bundle branch block Normal cortisol level Continue IV fluids I will add low-dose midodrine Pneumonia continue ceftriaxone and doxycycline Pleuritic pain ibuprofen as needed No significant family history, she will need telemetry/event monitor at the time of discharge with outpatient cardiology follow-up versus EP study Hypokalemia: Repleted Magnesium 2.2 TSH normal is at the bedside, Attestations Medical Necessity Statement*: Possible discharge tomorrow after negative stress test Diagnoses Right atrial dilatation I51.7 Palpitations R00.2 Brugada pattern on electrocardiogram I49.8 Left lower lobe pneumonia J18.9 Pneumonia J18.9 Yeast vaginitis B37.3 Hepatitis C virus infection cured after antiviral drug therapy Z86.19
--- NOTE | 2022-12-20 11:14 | ECG_ITS ---
[facility] Test Date: 2022-12-21 Pat Name: Eri Kaye Department: Room: 268 Gender: Female [employer] Scout: : 1965 Requested By: Don Barrera Order Number: [id number] Kassy MD: Nba Kerr M.D. Interpretive Statements NAME OF STUDY: LEXISCAN SESTAMIBI STRESS TEST INDICATION: UA, PROCEDURE: At the baseline, the EKG revealed sinus rhythm with a type I Brugada pattern. Some nonspecific T wave changes. The baseline heart was 84 bpm with a blood pressue of 128/74 mm of Hg Lexiscan was infused over a period of 20 seconds. A total of 0.4 milligrams of Lexiscan was infused. The stress phase was continued for a total of 5 minutes. Heart rate at the end of the stress phase was 102 bpm with a blood pressure 117/68 mm of Hg. The EKG at the peak infusion revealed no significant changes. Sestamibi was injected 20 seconds after the Lexiscan infusion. Heart rate at the end of the recovery phase was 97 bpm with a blood pressure of 119/67 mm of Hg. CONCLUSION: 1. No significant EKG changes with the LexiScan infusion 2. No LexiScan induced chest pain or cardiac arrhythmia 3. Normal blood pressure and heart rate response 4. Sestamibi/sestamibi perfusion scan pending; see separate report. Electronically Signed On 12-28-2022 20:12:48 CDT by Nba Kerr M.D. [id number]
[2022-12-20] MEDS: potassium chloride ER 20 mEq Tablet 40 MEQ PO (11:33)
[2022-12-20] MEDS: hydrocortisone 100 mg/2 mL SDV IVP (11:33)
[2022-12-20] MEDS: midodrine 5 mg TABLET PO ×3 (11:34→20:28)
--- NOTE | 2022-12-20 17:39 | P.PN_ITS ---
Subjective Subjective: Repeat EKG yesterday shows consistent type I Brugada features. No significant tacky or bradycardia arrhythmias on the monitor. She continues to the pleuritic type of chest pain. Medications: Medication Review Details: Current Medications Acetaminophen (Acetaminophen 325 Mg Tablet) 650 mg PO Q6H PRN PRN Reason: Mild/Mod Pain Or Temp >/= 101 Last Admin: 12/20/22 00:12 Dose: 650 mg Albuterol/Ipratropium (Ipratropium-Albuterol 3 Ml Neb) 3 ml INHALATION Q6H PRN PRN Reason: SHORTNESS OF BREATH Doxycycline Monohydrate (Doxycycline 100 Mg Tablet) 100 mg PO BID [facility]; Protocol Last Admin: 12/20/22 17:34 Dose: 100 mg Heparin Sodium (Porcine) (Heparin 5,000 Unit/Ml Inj 1 Ml) 5,000 unit SUBCUT Q12H [facility] Last Admin: 12/20/22 16:38 Dose: 5,000 unit Sodium Chloride (Sodium Chloride 0.9%) 1,000 mls @ 100 mls/hr IV .Q10H [facility] Last Admin: 12/20/22 15:17 Dose: 100 mls/hr Ceftriaxone Sodium 1,000 mg/ (Sodium Chloride) 50 mls @ 100 mls/hr IV Q24H [facility]; Protocol Last Infusion: 12/20/22 03:05 Dose: Infused Ibuprofen (Ibuprofen 200 Mg Tablet) 400 mg PO Q8H PRN PRN Reason: mild/mod pain or temp >/= 101 Magnesium Oxide (Magnesium Oxide 400 Mg Tablet) 400 mg PO BID [facility] Last Admin: 12/20/22 17:34 Dose: 400 mg Midodrine (Midodrine 5 Mg Tablet) 5 mg PO TID [facility] Last Admin: 12/20/22 15:17 Dose: 5 mg Vitals/I&O/Wt Last Vital Signs Temp 97.6 F 12/20/22 15:33 Pulse 92 12/20/22 15:33 Resp 16 12/20/22 15:33 BP 109/69 12/20/22 15:33 Pulse Ox 95 12/20/22 15:33 O2 Del Method Room Air 12/20/22 15:33 O2 Flow Rate 2 12/19/22 20:32 12/20/22 12/20/22 12/20/22 06:59 14:59 22:59 Intake Total 951.667 / 4385.416 720 / 720 1000 / 1720 Balance 951.667 / 4385.416 720 / 720 1000 / 1720 Weight last 48 hrs Weight 105 lb Weight 105 lb Physical Exam Narrative: GENERAL: The patient is alert and oriented times three. Not in any acute di stress. HEENT: No significant pallor, icterus or lymphadenopathy.Oral cavity: There are no mucous membrane lesions. NECK: Trachea appears to be central. No masses noted. No JVD or thyromegaly appreciated. RESPIRATORY: Scattered expiratory wheezings and coarse crackles BREASTS: Deferred. HEART: The heart sounds are normal. No S3 or S4. No significant murmurs. No pericardial rub ABDOMEN: No vessel pulsations or distention. No tenderness. No organomegaly appreciated. Bowel sounds are normally heard. : Deferred. RECTAL: Deferred. LYMPHATIC: No lymphadenopathy noted in the neck. EXTREMITIES: No edema or cyanosis. No clubbing. MUSCULOSKELETAL: No acute joint deformities or swelling SKIN: There are no significant rashes or ecchymosis NEUROPSYCHIATRIC: The patient is alert and oriented x3. Appears to be in a good mood. No tremors or rigidity noted. Data 12/20/22 04:46 12/20/22 04:46 Micro: Microbiology 12/19/22 02:07 Blood Culture - Preliminary Blood NEGATIVE TO DATE 12/19/22 02:05 Blood Culture - Preliminary Blood NEGATIVE TO DATE 12/19/22 10:14 Legionella Urinary Antigen - Final Urine,Voided Bacterial Antigens - Final A&P Assessment and plan (1) Brugada pattern on electrocardiogram: Patient currently has a type I Brugada pattern on the EKG. She was having a low-grade fever at the time of hospital admission. This might have revealed this pattern. Repeat EKG be appropriate to see any difference. The repeat EKG shows a consistent Brugada type I pattern (2) Palpitations: Patient has not had any tachy or bradycardia arrhythmias on the monitor so far. This may need to be further evaluated especially when she is discharged. (3) Left lower lobe pneumonia: May continue on the current management. (4) Right atrial dilatation: The echocardiogram was of suboptimal quality. The right atrium and right ventricle appears to be mildly dilated /upper limit of normal size. There is no significant structural abnormality noted Plan Other problems are Fever, currently afebrile Mild hypokalemia , currently corrected at this point, the patient may not require any specific intervention. She may be discharged home with an event monitor. Attestations Medical Necessity Statement*: Disposition as per the primary Coding Level of Care Code 06979 Diagnoses Brugada pattern on electrocardiogram I49.8 Palpitations R00.2 Left lower lobe pneumonia J18.9 Right atrial dilatation I51.7
[2022-12-21] MEDS: sodium chloride 0.9% 1,000 ML 100 ML IV (01:28)
[2022-12-21] MEDS: cefTRIAXone 1,000 MG in sodium chloride 0.9% (plus) 50 ML 100 MG IV (01:28)
[2022-12-21 03:52] VITALS: BP 112/70; PULSE 66; RESP 16; TEMP 37; O2SAT 99
[2022-12-21] MEDS: heparin 5,000 unit/mL INJ 1 mL 5000 UNIT SUBCUT (05:22)
[2022-12-21 05:52] LABS: Basophils % 0.3 %; Eosinophils % 0.3 %; Hematocrit 38.2 % (37.0-47.0); Hemoglobin 12.2 g/dL (11.5-15.3); Lymphocytes # 1.9 10^3/uL (0.8-4.8); Lymphocytes % 15.7 %; Mean Corpuscular HGB Conc 31.9 g/dL (30.0-36.0); Mean Corpuscular Volume 94.1 fl (81-99); Mean Platelet Volume 9.8 fL (7.4-10.4); Monocytes # 0.6 10^3/uL (0.2-0.9); Monocytes % 4.9 %; Neutrophils # 9.33 10^3/uL (1.8-7.7); Neutrophils % 78.1 %; Nucleated Red Blood Cells % 0 %; Platelet Count 195 10^3/cmm (130-400); Red Blood Count 4.06 10^6/uL (4.1-5.3); Red Cell Distribution Width 12.5 % (12.1-15.1); White Blood Count 11.9 10^3/uL (4.0-10.0)
[2022-12-21 06:00] VITALS: PULSE 90
[2022-12-21 07:38] VITALS: BP 122/70; PULSE 89; RESP 16; TEMP 36.8; O2SAT 95
--- NOTE | 2022-12-21 08:00 | NMCV_ITS ---
NM jayla perf SPECT r/s* [id number] Eri Kaye Age: 57 Gender: F : 1965 Exam Date: 12/21/2022 08:00 Ordering Phys: Don Barrera MD Technologist: SUDHEER Chiang Exam Location: [facility] Indications: CHEST PAIN STRESS TEST [facility] IMAGE PROTOCOL Rest/Stress 1 Lexiscan Day Radiopharmaceutical Dose (mCi) Administration Site Administered by Rest: Tc-99m 11.0 IV Ziyad Ramirez, UAT TESTER Sestamibi Stress:Tc-99m 32.4 IV Ziyad Ramirez, UAT TESTER Sestamibi Rest: 21-Dec-2022 60 Discovery 630 Stress: 21-Dec-2022 30 Discovery 630 0.4mg Lexiscan. Images obtained in supine and prone position. SPECT RESULTS Technical Quality: Excellent Raw Data Analysis: Normal Image Corrections: No attenuation or motion correction applied Summed Stress Score: 2 Summed Rest Score: 0 Summed Difference Score: 2 PERFUSION FINDINGS A small area of moderately decreased tracer uptake in the mid inferolateral region with the supine imaging. Complete reversibility was noted at rest. However the prone imaging, there is uniform myocardial tracer uptake with no significant perfusion normalities FUNCTIONAL RESULTS (calculated via Gated SPECT) Stress Image LV EF (%): 81 Stress EDV (mL):47 TID: 0.91 Stress ESV (mL):9 FUNCTIONAL FINDINGS: Segmental wall motion analysis revealing no gross wall motion abnormalities IMPRESSIONS 1. Myocardial perfusion imaging revealing a small area of inconsistent reversible defect in the mid inferolateral region, suggesting ischemia in the distribution of the circumflex artery. However because of the inconsistency with the prone imaging, most likely it is artifactual. 2. Normal LV ejection fraction of 81%. 3. LV wall motion analysis revealing no gross wall motion abnormalities. 4. Normal LV volume. Clinical correlation is recommended Dr Nba Kerr MD FAC (Electronically Signed) Final Date: 21 Dec 2022 13:05 S
[2022-12-21] MEDS: regadenoson 0.4 Mg/5 ml Syringe IVP (08:12)
[2022-12-21 08:28] VITALS: BP 119/67; PULSE 98
[2022-12-21] MEDS: doxycycline 100 mg Tablet PO (09:48)
[2022-12-21] MEDS: magnesium oxide 400 mg tablet PO (09:48)
[2022-12-21] MEDS: midodrine 5 mg TABLET PO (09:48)
[2022-12-21 11:35] VITALS: BP 128/81; PULSE 88; RESP 16; TEMP 36.6; O2SAT 97
--- NOTE | 2022-12-21 11:45 | P.DS_ITS ---
Discharge Providers Date of Admission: 12/19/22 03:53 Date of Discharge: December 21, 2022 Attending Provider at Admission: Iris Kennedy MD Attending Provider at Discharge: Don Barrera MD Primary Care Provider: Mary Montanez APN Diagnoses at Discharge Discharge Diagnosis (1) Brugada pattern on electrocardiogram: Status: Acute (2) Palpitations: Status: Acute (3) Left lower lobe pneumonia: Status: Acute (4) Right atrial dilatation: Status: Acute Reason for Visit Reason for Visit: CP Hospital Course Hospital Course 57-year female who presented to the hospital with chief complaint of chest discomfort which was related to pleuritic left lower lobe pneumonia, EKG showed Brugada syndrome current there is no family history of sudden cardiac arrest AICD placement or pacemaker, patient was evaluated by Dr. 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 echo complete* [id number]] Routine Ultrasound 12/19/22 04:25 Completed Pending at discharge Category Date Time Status Blood Culture Stat Lab 12/19/22 02:07 Results Sputum Culture and Gram Stain Routine Lab 12/21/22 08:26 Uncollected Sputum Culture and Gram Stain Stat Lab 12/19/22 04:25 Uncollected NM jayla perf SPECT r/s* [id number] Routine Nuc Med 12/21/22 08:00 Taken Radiology Impressions Chest X-Ray 12/19/22 01:18 IMPRESSION: Left lower lung field hazy consolidative changes compatible with evolving infectious and/or inflammatory process. Recommend follow-up to resolution to exclude other etiologies and occult underlying pathology. Laboratory Results WBC 11.9 10^3/uL (4.0-10.0) H 12/21/22 05:07 RBC 4.06 10^6/uL (4.1-5.3) L 12/21/22 05:07 Hgb 12.2 g/dL (11.5-15.3) 12/21/22 05:07 Hct 38.2 % (37.0-47.0) 12/21/22 05:07 MCV 94.1 fl (81-99) 12/21/22 05:07 MCH 30.0 pg (28.0-34.0) 12/21/22 05:07 MCHC 31.9 g/dL (30.0-36.0) 12/21/22 05:07 RDW 12.5 % (12.1-15.1) 12/21/22 05:07 Plt Count 195 10^3/cmm (130-400) 12/21/22 05:07 MPV 9.8 fL (7.4-10.4) 12/21/22 05:07 Neut % (Auto) 78.1 % 12/21/22 05:07 Lymph % (Auto) 15.7 % 12/21/22 05:07 Davidson % (Auto) 4.9 % 12/21/22 05:07 Eos % (Auto) 0.3 % 12/21/22 05:07 Baso % (Auto) 0.3 % 12/21/22 05:07 Neut # (Auto) 9.33 10^3/uL (1.8-7.7) H 12/21/22 05:07 Lymph # (Auto) 1.9 10^3/uL (0.8-4.8) 12/21/22 05:07 Davidson # (Auto) 0.6 10^3/uL (0.2-0.9) 12/21/22 05:07 Eos # (Auto) 0.0 10^3/uL (0.0-0.8) 12/21/22 05:07 Baso # (Auto) 0.0 10^3/uL (0.0-0.1) 12/21/22 05:07 Nucleated RBC % (auto) 0 % 12/21/22 05:07 Nucleated RBCs # 0.0 /100WBC 12/21/22 05:07 Sodium 139 mmol/L (136-145) 12/20/22 04:46 Potassium 3.8 mmol/L (3.5-5.1) 12/20/22 04:46 Chloride 110 mmol/L (98-107) H 12/20/22 04:46 Carbon Dioxide 24 mmol/L (22-29) 12/20/22 04:46 Anion Gap 8.8 (5-19) 12/20/22 04:46 BUN 8 mg/dL (6-20) 12/20/22 04:46 Creatinine 0.6 mg/dL (0.5-0.9) 12/20/22 04:46 GFR Calculation 102.7 mL/min (90-130) 12/20/22 04:46 Glucose 111 mg/dL (65-115) 12/20/22 04:46 Calculated Osmolality 287 mOsm/kg (285-295) 12/20/22 04:46 Lactic Acid 1.5 mmol/L (0.5-2.2) 12/19/22 02:05 Calcium 8.2 mg/dL (8.5-10.5) L 12/20/22 04:46 Magnesium 2.2 mg/dL (1.7-2.3) 12/20/22 04:46 Total Bilirubin 0.3 mg/dL (0.15-1.2) 12/20/22 04:46 AST 25 U/L (0-32) 12/20/22 04:46 ALT 24 U/L (0-33) 12/20/22 04:46 Alkaline Phosphatase 45 U/L (35-105) 12/20/22 04:46 Troponin T Baseline 10 ng/L (0-10) 12/19/22 02:05 Troponin T Hi Sens 6Hr 8.39 ng/L (0-10) 12/19/22 08:17 Troponin T Hi Sens 6Hr Delta -1.61 ng/L (0-12) L 12/19/22 08:17 NT-Pro-B Natriuret Pep 116 pg/mL (0-125) 12/19/22 02:05 Total Protein 5.5 g/dL (6.6-8.7) L 12/20/22 04:46 Albumin 3.0 g/dL (3.5-5.2) L 12/20/22 04:46 Globulin 2.5 g/dL (1.3-4.6) 12/20/22 04:46 Procalcitonin 1.49 ng/mL (0-0.5) H 12/19/22 02:05 TSH 0.51 uIU/mL (0.27-4.20) 12/19/22 02:05 Random Cortisol 5.12 ug/dL (2.47-19.5) 12/20/22 04:46 Urine Color Yellow (Yellow) 12/19/22 03:50 Urine Appearance Clear (CLEAR) 12/19/22 03:50 Urine pH 7 (5-7) 12/19/22 03:50 Ur Specific [place] 1.020 (1.005-1.030) 12/19/22 03:50 Urine Protein Trace (Negative) 12/19/22 03:50 Urine Glucose (UA) Norm (Normal) 12/19/22 03:50 Urine Ketones Negative (Negative) 12/19/22 03:50 Urine Blood 2+ (Negative) H 12/19/22 03:50 Urine Nitrate Negative (Negative) 12/19/22 03:50 Urine Bilirubin Neg (Negative) 12/19/22 03:50 Urine Urobilinogen Neg mg/dL (Negative) 12/19/22 03:50 Ur Leukocyte Esterase Trace (Negative) H 12/19/22 03:50 Urine RBC 5-10 /hpf (0-2) H 12/19/22 03:50 Urine WBC 0-4 /hpf (0-5) H 12/19/22 03:50 Ur Squamous Epith Cells None /hpf (0-5) 12/19/22 03:50 Amorphous Sediment Not Reportable 12/19/22 03:50 Urine Bacteria Trace /hpf (NONE) 12/19/22 03:50 SARS-CoV-2 Ag (Rapid) negative (Negative) 12/19/22 01:50 Vitals Last Vital Signs Temp 97.9 F 12/21/22 11:35 Pulse 88 12/21/22 11:35 Resp 16 12/21/22 11:35 BP 128/81 12/21/22 11:35 Pulse Ox 97 12/21/22 11:35 O2 Del Method Room Air 12/21/22 07:38 O2 Flow Rate 2 12/19/22 20:32 Discharge Plan Discharge Patient Disposition: Home Condition: Stable Prescriptions: New ibuprofen 400 mg tablet 400 mg PO Q8H PRN (Reason: pain) Qty: 30 0RF albuterol sulfate 90 mcg/actuation HFA aerosol inhaler 1 inh inhalation Q6H PRN (Reason: shortness of breath or wheezing) Qty: 8.5 0RF levofloxacin 750 mg tablet 750 mg PO DAILY 10 Days Qty: 10 0RF lidocaine [Lidocaine Pain Relief] 4 % adhesive patch,medicated 1 patch topical DAILY PRN (Reason: pain) Qty: 5 0RF Rx Instructions: may leave on for up to 12 hrs Discontinued cetirizine [Zyrtec] 10 mg tablet 10 mg PO DAILY chlorhexidine gluconate 0.12 % mouthwash 15 ml PO BID Rx Instructions: DO NOT SWALLOW Discharge Orders: Discharge Order (Routine); Ordered 12/21/22 Ordered By: Don Barrera Other Ambulatory Orders: MCT/Event Monitor 21 Days (Routine) Timeframe: 3 Weeks Facility: [facility] - Location: Radiology Ordered By: Don Barrera Referrals: Nba Kerr MD [Physician] - 1 month Montanez,ARIE Meeks [Referring] - 12/24/22 1:15 pm Discharge Diet: Cardiac Patient Instructions: Opioid Safety Activity Restrictions/Additional Instructions: May resume to work on Saturday if you are feeling better Wear event monitor for 3 weeks and then follow-up with cardiology Discharge Attestations Time Spent in Discharge Care*: greater than 30 min Quality Metrics Clinical Quality Measures [ No reported AMI, CVA or VTE this stay] Coding Level of Care Code Acute Code for Chg Fwd Diagnoses Brugada pattern on electrocardiogram I49.8 Palpitations R00.2 Left lower lobe pneumonia J18.9 Right atrial dilatation I51.7
[2022-12-21 14:49] VITALS: BP 128/81; PULSE 88; RESP 16; TEMP 36.6; O2SAT 97
== END 2022-12-21 14:50 | disposition home or self-care (01) | DRG 195 ==
LOC: ER 03:08 → MEDSURG 03:53
PROVIDERS: Admitting Provider Internal Medicine; Emergency Provider Emergency Medicine; PCP Nurse Practitioner Family; Visit Provider Internal Medicine
DX: J18.9 Pneumonia, unspecified organism (principal); I49.8 Other specified cardiac arrhythmias; Z86.19 Personal history of other infectious and parasitic diseases; E87.6 Hypokalemia; I95.9 Hypotension, unspecified; N76.0 Acute vaginitis
CPT/HCPCS: 36415; 71045; 78452; 80053; 81001; 82533; 83605; 83735; 83880; 84145; 84443; 84484; 85025; 86403; 87040; 87426; 87449; 93005; 93017; 93306; 96365; 96367; 96372; 96374; 96375; 99285; A9500; J0456; J0696; J1170; J1644; J1720; J2270; J2405; J2785; J2920; J7030; J7050; J7120

== ENCOUNTER 2023-01-02 10:27 | Outpatient (CLI) | payer OTHER, SELFPAY ==
--- NOTE | 2023-01-02 | XRR_ITS ---
PROCEDURE INFORMATION: Exam: XR Chest Exam date and time: 01/02/2023 10:59 AM Age: 57 years old Clinical indication: Condition or disease; Lung condition and disease; Pneumonia; Additional info: Routine, pneumonia TECHNIQUE: Imaging protocol: Radiologic exam of the chest. Views: 2 views. COMPARISON: CR (CHEST, ) 12/19/2022 1:25 AM FINDINGS: Lungs: Unremarkable. No consolidation. Pleural spaces: Small left lower lobe pleural effusion. No pneumothorax. Heart/Mediastinum: Unremarkable. No cardiomegaly. Bones/joints: Unremarkable. XR/XR chest 2V* [id number] IMPRESSION: Left lower lobe pleural effusion Otherwise No acute findings.
--- NOTE | 2023-01-02 10:42 | MM_ITS ---
WS: [id number] SCREENING DIGITAL TOMOSYNTHESIS MAMMOGRAM WITH CAD HISTORY: SCREENING COMPARISON: 01/01/2022 and 09/17/2016 Bilateral CC and MLO with tomosynthesis views submitted. Synthetic mammography reviewed. Computer aid ed detection analyzed. Breast composition: The breasts are heterogeneously dense, which may obscure small masses. No suspici ous masses, microcalcifications or architectural distortion. MM/[place] [id number] IMPRESSION: BI-RADS: 1-Negative FOLLOW UP: 1 Year Follow-up
== END 2023-01-02 10:28 | disposition home or self-care (01) ==
PROVIDERS: PCP Family Medicine; Referring Provider Nurse Practitioner Family; Visit Provider Nurse Practitioner Family
DX: Z12.31 Encounter for screening mammogram for malignant neoplasm of breast (principal); J18.9 Pneumonia, unspecified organism; J90 Pleural effusion, not elsewhere classified; R06.02 Shortness of breath
CPT/HCPCS: 71046; 77063; 77067

== ENCOUNTER 2023-01-18 10:30 | Outpatient (CLI) | payer OTHER, SELFPAY ==
--- NOTE | 2023-01-18 10:57 | XR_ITS ---
WS: [id number] Chest 2 views, 01/18/2023 Clinical Data: LEFT PLEURAL EFFUSION/PNEUMONIA Comparison: PA and lateral chest, 01/02/2023 Findings: No nodules, masses or effusions are seen. The heart is normal. The pulmonary vascularity is not increased. No pneumonia or pneumothorax is seen. XR/XR chest 2V* [id number] Impression: Negative chest.
== END 2023-01-18 10:31 | disposition home or self-care (01) ==
PROVIDERS: PCP Family Medicine; Visit Provider Family Medicine
DX: J90 Pleural effusion, not elsewhere classified (principal); J18.9 Pneumonia, unspecified organism
CPT/HCPCS: 71046

== ENCOUNTER 2023-06-28 15:58 | Outpatient (CLI) | payer OTHER, SELFPAY ==
--- NOTE | 2023-06-28 16:10 | XRR_ITS ---
PROCEDURE INFORMATION: Exam: XR Chest Exam date and time: 06/28/2023 4:18 PM Age: 57 years old Clinical indication: Shortness of breath; Additional info: SOB TECHNIQUE: Imaging protocol: Radiologic exam of the chest. Views: 2 views. COMPARISON: CR XR chest 2V* [id number] 01/18/2023 11:03 AM FINDINGS: Lungs: The lungs are clear. Pleural spaces: Unremarkable. No pleural effusion. No pneumothorax. Heart/Mediastinum: The heart size is within normal limits. Bones/joints: Unremarkable. Soft tissues: Patient has prominent nipple shadows. XR/XR chest 2V* [id number] IMPRESSION: Negative for acute findings.
== END 2023-06-28 15:59 | disposition home or self-care (01) ==
PROVIDERS: PCP Nurse Practitioner Family; Visit Provider Nurse Practitioner Family
DX: R06.02 Shortness of breath (principal)
CPT/HCPCS: 71046

== ENCOUNTER 2023-07-10 06:00 | Outpatient (CLI) | payer OTHER, SELFPAY ==
--- NOTE | 2023-07-10 | US_ITS ---
WS: [id number] Complete ABDOMINAL ULTRASOUND HISTORY: ABD PAIN COMPARISON: 04/28/2019 Liver: 14.3 cm in length. Normal size liver and echogenicity. No bile duct dilatation or mass. Portal Vein: Normal hepatopetal flow with monophasic waveform. Gallbladder: Normally distended gallbladder with no stones or wall thickening. CBD: 0.2 cm Pancreas: Normal size and echogenicity. Right kidney: 10.5 cm x 2.9 x 3.7 cm. Cortex:0.6 cm. Normal size and echogenicity. No hydronephrosis or mass. Left kidney: 10.5 cm x 4.1 cm x 3.7 cm. Cortex: 0.8 cm. Normal size and echogenicity. No hydronephrosis or mass. Spleen: Normal. Aorta and IVC: Unremarkable abdominal aorta and IVC. Impression: Normal complete abdomen ultrasound.
== END 2023-07-10 06:01 | disposition home or self-care (01) ==
LOC: RAD 06:00
PROVIDERS: PCP Nurse Practitioner Family; Visit Provider Nurse Practitioner Family
DX: R10.9 Unspecified abdominal pain (principal)
CPT/HCPCS: 76700

== ENCOUNTER 2023-11-07 13:32 | Outpatient (CLI) | payer OTHER, SELFPAY ==
[2023-11-07 14:00] VITALS: PULSE 94; RESP 18; O2SAT 100
[2023-11-07] MEDS: albuterol 2.5 mg/3 mL Neb INHALATION (14:00)
[2023-11-07 14:05] VITALS: PULSE 96
== END 2023-11-07 13:33 | disposition home or self-care (01) ==
LOC: RT 13:32
PROVIDERS: PCP Nurse Practitioner Family; Visit Provider Nurse Practitioner Family
DX: R06.02 Shortness of breath (principal)
CPT/HCPCS: 94060; 94726; 94729; J7613

== ENCOUNTER 2024-01-24 09:07 | Outpatient (CLI) | payer OTHER, SELFPAY ==
--- NOTE | 2024-01-24 09:11 | MM_ITS ---
WS: [id number] SCREENING DIGITAL TOMOSYNTHESIS MAMMOGRAM WITH CAD HISTORY: SCREENING COMPARISON: 01/02/2023, 01/01/2022 Bilateral CC and MLO with tomosynthesis views submitted. Synthetic mammography reviewed. Computer aid ed detection analyzed. Breast composition: The breasts are heterogeneously dense, which may obscure small masses. No suspici ous masses, microcalcifications or architectural distortion. MM/[place] [id number] IMPRESSION: BI-RADS: 1-Negative FOLLOW UP: 1 Year Follow-up
== END 2024-01-24 09:08 | disposition home or self-care (01) ==
LOC: RAD 09:08
PROVIDERS: PCP Nurse Practitioner Family; Visit Provider Nurse Practitioner Family
DX: Z12.31 Encounter for screening mammogram for malignant neoplasm of breast (principal); R92.333 Mammographic heterogeneous density, bilateral breasts
CPT/HCPCS: 77063; 77067

== ENCOUNTER → 2024-02-05 16:27 | Outpatient (BNVA) | payer OTHER, SELFPAY | PROVIDERS: PCP Nurse Practitioner Family; Visit Provider Internal Medicine Cardiovascular Disease | DX: I45.10 Unspecified right bundle-branch block (principal); R07.9 Chest pain, unspecified | CPT/HCPCS: 93005 ==

== ENCOUNTER 2025-06-11 13:39 | Outpatient (CLI) | payer OTHER, SELFPAY ==
--- NOTE | 2025-06-11 13:48 | MM_ITS ---
WS: [id number] BILATERAL 3D TOMOSYNTHESIS DIGITAL SCREENING MAMMOGRAPHY WITH CAD CLINICAL INFORMATION: SCREENING HISTORY: Screening mammogram. No current complaints. COMPARISON: 2023 TECHNIQUE: Bilateral CC and MLO views. FINDINGS: The breasts are composed of heterogeneous fibroglandular density tissue, which can limit the detection of small underlying mass lesions. No suspicious mass, asymmetry, calcifications, or architectural distortion. No evidence of malignancy. MM/MM scr tomosynthesis [id number] IMPRESSION: DENSITY: The breasts are heterogeneously dense, which may obscure small masses. BI-RADS: 1 - Negative FOLLOW UP: 1 Year Follow-up Recommend return to annual screening mammography.
== END 2025-06-11 13:40 | disposition home or self-care (01) ==
LOC: RAD 13:41
PROVIDERS: PCP Nurse Practitioner Family; Visit Provider Nurse Practitioner Family
DX: Z12.31 Encounter for screening mammogram for malignant neoplasm of breast (principal); R92.333 Mammographic heterogeneous density, bilateral breasts; R92.323 Mammographic fibroglandular density, bilateral breasts
CPT/HCPCS: 77063; 77067